=== PATIENT | male | born 1990 | race Hispanic/Latino ===

== ENCOUNTER → 2019-04-05 | Outpatient (CLI) | payer OTHER | END | disposition home or self-care (01) | LOC: RAH 10:38 | PROVIDERS: ATTEND Orthopaedic Surgery | DX: S92.301A Fracture of unspecified metatarsal bone(s), right foot, initial encounter for closed fracture (principal); X58.XXXA Exposure to other specified factors, initial encounter; Y93.89 Activity, other specified; Y92.89 Other specified places as the place of occurrence of the external cause; Y99.8 Other external cause status | CPT/HCPCS: 73620 ==